=== PATIENT | male | born 1940 | race Caucasian/White ===

== ENCOUNTER → 2018-06-25 | Outpatient (CLI) | payer MEDICARE, OTHER ==
[~2018-06-25] MED LIST: B Complex1 EAC2 PO; FAMO20 PO; FLUC200 PO; NAPR220 PO; TERB250 PO; VITAMIN C500 MG; VITAMIN D32000 UNIT
== END | disposition home or self-care (01) ==
LOC: PLD 14:20 → LAB SHORT 14:20
DX: D48.5 Neoplasm of uncertain behavior of skin (principal); L73.8 Other specified follicular disorders
CPT/HCPCS: 88305

== ENCOUNTER → 2019-06-17 | Outpatient (CLI) | payer MEDICARE, OTHER ==
[2019-06-19 13:18] LABS: M-SPIKE, % Not Observed % (Not Observed); PROTEIN,TOTAL,URINE 4.1 mg/dL (Not Estab.)
== END | disposition home or self-care (01) ==
LOC: LAB SHORT 09:24 → LAB 09:24 → LAB FUT 06-13 11:50
PROVIDERS: Internal Medicine
DX: Z00.01 Encounter for general adult medical examination with abnormal findings (principal)
CPT/HCPCS: 81050; 84166; 86335

== ENCOUNTER → 2019-06-17 | Outpatient (CLI) | payer MEDICARE, OTHER | END | disposition home or self-care (01) | LOC: PLD 11:53 → LAB SHORT 11:53 | DX: D48.5 Neoplasm of uncertain behavior of skin (principal) | CPT/HCPCS: 88305 ==

== ENCOUNTER → 2020-04-29 | Outpatient (CLI) | payer MEDICARE | END | disposition home or self-care (01) | LOC: LAB SHORT 08:26 → PLD 08:26 | DX: L82.1 Other seborrheic keratosis (principal) | CPT/HCPCS: 88305 ==